=== PATIENT | female | born 1935 | race Caucasian/White ===

== ENCOUNTER 2019-06-16 18:06 | Emergency (ER) | payer MEDICARE, BC ==
[~2019-06-16] VITALS: Ht 154.9 cm; Wt 70.9 kg
[2019-06-16 20:05] VITALS: BP 154/99
== END 2019-06-16 20:06 | disposition home or self-care (01) ==
LOC: ER 18:07
DX: I10 Essential (primary) hypertension (principal)
CPT/HCPCS: 99281